=== PATIENT | male | born 1965 | race Caucasian/White ===

== ENCOUNTER 2024-09-07 08:01 | Emergency (ER) | payer SELFPAY ==
[~2024-09-07] VITALS: Ht 180.3 cm; Wt 87.0 kg
[2024-09-07 08:08] VITALS: BP 191/109
[2024-09-07] MEDS ORDERED: AMOX/K CLAV875 M1 PO ×2 (08:28→08:45)
[2024-09-07 08:30] VITALS: BP 191/109
== END 2024-09-07 08:43 | disposition home or self-care (01) | DRG 153 ==
LOC: ED 08:01
DX: J32.1 Chronic frontal sinusitis (principal); I10 Essential (primary) hypertension